=== PATIENT | female | born 1935 | race Caucasian/White ===

== ENCOUNTER 2017-10-19 22:22 | Inpatient (IN) | payer OTHER ==
[~2017-10-19] VITALS: Ht 154.9 cm; Wt 50.8 kg
[~2017-10-19 22:22] MED LIST: ADVAIR DISKUS 21 DSK IH; AMITRIPTYLINE100 MG PO; BACLOFEN10 MG PO; BUFFERIN LOW DO81 M1 PO; CARISOPRODOL350 MG PO; CIPRO500 MG PO; ECO81 PO; ELA50 PO; HYD25 PO; HYDROCHLOROTH12.5 MG PO; HYDROCODONE ACETAMIN; LAC PO; LEVAQUIN500 MG PO; LOP50 PO; METOPROLOL SUCC25 M1 PO; MICROZIDE12.5 MG PO; NEU300 PO; NOR10T; NOR10T PO; PREDNISONE5 MG PO; PRINIVIL10 MG PO; PRO AIR; PROAIR HFA8.5 GM; PROVENTIL0.09 MG/A1; SER25 PO; SEROQUEL50 M1 PO; SIMVASTATIN40 M1 PO; SOM350 PO; SPIRIVA18 MC1 IH; ZES10 PO; ZOC20 PO
[2017-10-19 22:41] VITALS: Ht 154.9 cm; Wt 50.8 kg
[2017-10-19 23:49] LABS: BASOPHIL % 0.4 % (0-2); PLATELET COUNT 348 x10^3mcL (130-400); RED CELL DISTRIBUTION WIDTH 13.6 % (11.5-14.5)
[2017-10-19 23:53] LABS: CALCIUM 8.6 mg/dL (8.5-10.1); CARBON DIOXIDE 27.7 mmol/L (21-32); CHLORIDE SERUM 103 mmol/L (98-107); CREATININE SERUM 0.9 mg/dL (0.6-1.0); GLUCOSE SERUM 114 mg/dL (74-106); POTASSIUM SERUM 3.5 mmol/L (3.5-5.1); SODIUM SERUM 139 mmol/L (136-145)
[2017-10-19 23:58] LABS: ALKALINE PHOSPHATASE 94 U/L (46-116); ALT/SGPT 15 U/L (14-59); AST/SGOT 13 U/L (15-37); BILIRUBIN TOTAL 0.6 mg/dL (0.20-1.00); TOTAL PROTEIN, SERUM 7.4 g/dL (6.4-8.2)
[2017-10-19 23:59] LABS: ALBUMIN 3.2 g/dL (3.4-5.0)
[2017-10-20] VITALS (8 sets, daily range): BP systolic 90–110; BP diastolic 51–64
[2017-10-20] MEDS ORDERED: BACLOFEN20 MG PO (00:16)
[2017-10-20] MEDS ORDERED: NOR5 PO (00:17)
[2017-10-20] MEDS ORDERED: LAXATIVE5 M1 PO (00:18)
[2017-10-20] MEDS ORDERED: MASON NATURAL1000 IU PO (00:19)
[2017-10-20] MEDS ORDERED: PREDNISONE20 MG PO ×2 (00:21)
[2017-10-20] MEDS ORDERED: CLARITIN10 MG PO (00:22)
[2017-10-20 02:51] LABS: MAGNESIUM 1.8 mg/dL (1.8-2.4); PHOSPHOROUS 2.3 mg/dL (2.5-4.9)
[2017-10-20 02:53] LABS: CHOLESTEROL/HDL RATIO 2.1
[2017-10-20 02:57] LABS: FREE T4 1.38 ng/dL (0.76-1.46); FREE THYROXINE INDEX 2.9 ug/dL (1.4-4.5); T3 TOTAL 0.6 ng/mL
[2017-10-20 06:40] LABS: CALCIUM 8.3 mg/dL (8.5-10.1); CHLORIDE SERUM 106 mmol/L (98-107); CREATININE SERUM 0.8 mg/dL (0.6-1.0); GLUCOSE SERUM 162 mg/dL (74-106); POTASSIUM SERUM 3.7 mmol/L (3.5-5.1); SODIUM SERUM 142 mmol/L (136-145)
[2017-10-20 07:01] LABS: PLATELET COUNT 310 x10^3mcL (130-400); RED CELL DISTRIBUTION WIDTH 13.5 % (11.5-14.5)
[2017-10-20 07:03] LABS: BASOPHIL % 0 % (0-2)
[2017-10-20 13:48] LABS: UA SPECIFIC GRAVITY 1.025 (1.005-1.035); microscopic required? YES; urine erythrocyte NEGATIVE (NEGATIVE)
[2017-10-21 05:25] VITALS: BP 114/62
[2017-10-21 05:59] LABS: PLATELET COUNT 331 x10^3mcL (130-400); RED CELL DISTRIBUTION WIDTH 13.7 % (11.5-14.5)
[2017-10-21 06:30] LABS: CALCIUM 8.3 mg/dL (8.5-10.1); CARBON DIOXIDE 26.7 mmol/L (21-32); CHLORIDE SERUM 108 mmol/L (98-107); CREATININE SERUM 0.9 mg/dL (0.6-1.0); GLUCOSE SERUM 157 mg/dL (74-106); PHOSPHOROUS 3.3 mg/dL (2.5-4.9); POTASSIUM SERUM 3.9 mmol/L (3.5-5.1); SODIUM SERUM 146 mmol/L (136-145)
[2017-10-21 08:19] LABS: BAND NEUTROPHIL 6 % (0-10); BASOPHIL 0 % (0-2); MONOCYTE 3 % (0-7); SEGMENTED NEUTROPHILS 88 % (37-75)
[2017-10-21 08:20] LABS: PLATELET MORPHOLOGY PLATELETS NORMAL
[2017-10-21 09:47] VITALS: BP 129/72
[2017-10-21 15:10] VITALS: BP 102/63
[2017-10-21 17:56] VITALS: BP 113/68
[2017-10-21 21:35] VITALS: BP 126/68
[2017-10-22 05:26] VITALS: BP 128/75
[2017-10-22 06:50] LABS: CALCIUM 8.9 mg/dL (8.5-10.1); CARBON DIOXIDE 28.6 mmol/L (21-32); CHLORIDE SERUM 110 mmol/L (98-107); CREATININE SERUM 0.8 mg/dL (0.6-1.0); GLUCOSE SERUM 102 mg/dL (74-106); MAGNESIUM 2.2 mg/dL (1.8-2.4); PHOSPHOROUS 2.9 mg/dL (2.5-4.9); POTASSIUM SERUM 3.8 mmol/L (3.5-5.1); SODIUM SERUM 146 mmol/L (136-145)
[2017-10-22 06:54] LABS: PLATELET COUNT 365 x10^3mcL (130-400); RED CELL DISTRIBUTION WIDTH 13.7 % (11.5-14.5)
[2017-10-22 09:30] VITALS: BP 135/76
[2017-10-22 10:22] LABS: BAND NEUTROPHIL 10 % (0-10); BASOPHIL 0 % (0-2); MONOCYTE 1 % (0-7); SEGMENTED NEUTROPHILS 85 % (37-75)
[2017-10-22 10:24] LABS: PLATELET MORPHOLOGY PLATELETS NORMAL; rbc morphology (normal/abnorm) ABNORMAL (NORMAL)
[2017-10-22] MEDS ORDERED: LEVAQUIN750 MG PO (12:29)
[2017-10-22] MEDS ORDERED: CLEOCIN HCL300 MG PO ×2 (12:31→16:21)
[2017-10-22] MEDS ORDERED: LAC PO ×2 (12:31→16:21)
[2017-10-22 13:34] VITALS: BP 122/71
[2017-10-22 14:31] VITALS: BP 122/71
== END 2017-10-22 16:44 | disposition home or self-care (01) | DRG 871 ==
LOC: ED 22:22 → DU 10-20 01:25
PROVIDERS: Emergency Medicine; Family Medicine; Student in an Organized Health Care Education/Training Program
DX: A41.9 Sepsis, unspecified organism (principal); J69.0 Pneumonitis due to inhalation of food and vomit; N17.0 Acute kidney failure with tubular necrosis; J96.21 Acute and chronic respiratory failure with hypoxia; J44.1 Chronic obstructive pulmonary disease with (acute) exacerbation; N39.0 Urinary tract infection, site not specified; E44.0 Moderate protein-calorie malnutrition; E87.0 Hyperosmolality and hypernatremia; Z68.1 Body mass index [BMI] 19.9 or less, adult; E83.39 Other disorders of phosphorus metabolism; R65.20 Severe sepsis without septic shock; I10 Essential (primary) hypertension; M54.2 Cervicalgia; M54.5 Low back pain; G89.29 Other chronic pain; R73.03 Prediabetes; D63.8 Anemia in other chronic diseases classified elsewhere; E78.5 Hyperlipidemia, unspecified; F32.9 Major depressive disorder, single episode, unspecified; F17.210 Nicotine dependence, cigarettes, uncomplicated; Z85.3 Personal history of malignant neoplasm of breast; Z90.12 Acquired absence of left breast and nipple; Z79.82 Long term (current) use of aspirin; Z79.891 Long term (current) use of opiate analgesic; Z79.52 Long term (current) use of systemic steroids; Z99.81 Dependence on supplemental oxygen
CPT/HCPCS: 36600; 82962; 83880; 84439; 87804; J1885; J1956; J2060; J2543; J2920; J2930; J7030; J7613; J7620; J7626; J7644; Q0092

== ENCOUNTER 2017-10-31 22:56 | Emergency (ER) | payer OTHER ==
[~2017-10-31] VITALS: Ht 154.9 cm; Wt 44.9 kg
[~2017-10-31 22:56] MED LIST changes: +BACLOFEN20 MG PO; +CLARITIN10 MG PO; +CLEOCIN HCL300 MG PO; +LAXATIVE5 M1 PO; +LEVAQUIN750 MG PO; +MASON NATURAL1000 IU PO; +NOR5 PO; +PREDNISONE20 MG PO
[2017-10-31 23:05] VITALS: Ht 154.9 cm; Wt 44.9 kg
[2017-11-01 00:08] LABS: BASOPHIL % 0.2 % (0-2); RED CELL DISTRIBUTION WIDTH 14.3 % (11.5-14.5)
[2017-11-01 00:16] LABS: PLATELET COUNT 486 x10^3mcL (130-400)
[2017-11-01 00:32] LABS: CALCIUM 9.3 mg/dL (8.5-10.1); CARBON DIOXIDE 32.4 mmol/L (21-32); CHLORIDE SERUM 104 mmol/L (98-107); GLUCOSE SERUM 129 mg/dL (74-106); POTASSIUM SERUM 4.1 mmol/L (3.5-5.1); SODIUM SERUM 145 mmol/L (136-145)
[2017-11-01 00:37] LABS: ALKALINE PHOSPHATASE 99 U/L (46-116); ALT/SGPT 19 U/L (14-59); AST/SGOT 23 U/L (15-37); BILIRUBIN TOTAL 0.24 mg/dL (0.20-1.00); TOTAL PROTEIN, SERUM 7.4 g/dL (6.4-8.2)
[2017-11-01 00:42] LABS: ALBUMIN 3.3 g/dL (3.4-5.0)
[2017-11-01 03:00] VITALS: BP 110/60
[2017-11-02] MEDS ORDERED: BACLOFEN20 MG PO (20:11)
[2017-11-02] MEDS ORDERED: CONSTULOSE10 GM/151 PO (20:11)
[2017-11-02] MEDS ORDERED: NOR10T PO (20:12)
[2017-11-02] MEDS ORDERED: BD LACTINEX1.4 MG PO (20:13)
[2017-11-02] MEDS ORDERED: SYMBICORT1 AE3 INH (20:13)
[2017-11-02] MEDS ORDERED: PROAIR RES117 MCG/Ac IH (20:14)
[2017-11-02] MEDS ORDERED: ATRNS6 IH (20:15)
== END 2017-11-01 03:00 | disposition home or self-care (01) ==
LOC: ED 22:56
PROVIDERS: Emergency Medicine
DX: J44.1 Chronic obstructive pulmonary disease with (acute) exacerbation (principal); K59.00 Constipation, unspecified; Z88.5 Allergy status to narcotic agent; Z71.6 Tobacco abuse counseling
CPT/HCPCS: 83880; 99406; J1885; J2405; J2930; J3010; J7613; J7644; Q0092

== ENCOUNTER 2017-11-02 17:59 | Inpatient (IN) | payer OTHER ==
[~2017-11-02] VITALS: Ht 154.9 cm; Wt 45.8 kg
[2017-11-02 18:51] LABS: BASOPHIL % 0.4 % (0-2); RED CELL DISTRIBUTION WIDTH 14.2 % (11.5-14.5)
[2017-11-02 18:52] LABS: PLATELET COUNT 478 x10^3mcL (130-400)
[2017-11-02 18:55] LABS: CALCIUM 8.8 mg/dL (8.5-10.1); CARBON DIOXIDE 30.4 mmol/L (21-32); CHLORIDE SERUM 101 mmol/L (98-107); GLUCOSE SERUM 99 mg/dL (74-106); POTASSIUM SERUM 4.4 mmol/L (3.5-5.1); SODIUM SERUM 141 mmol/L (136-145)
[2017-11-02 18:59] LABS: ALKALINE PHOSPHATASE 95 U/L (46-116); ALT/SGPT 20 U/L (14-59); AST/SGOT 22 U/L (15-37); BILIRUBIN TOTAL 0.2 mg/dL (0.20-1.00); TOTAL PROTEIN, SERUM 7.3 g/dL (6.4-8.2)
[2017-11-02 19:02] LABS: ALBUMIN 3.3 g/dL (3.4-5.0)
[2017-11-02] MEDS ORDERED: CONSTULOSE10 GM/151 PO (20:11)
[2017-11-02] MEDS ORDERED: BACLOFEN20 MG PO (20:11)
[2017-11-02] MEDS ORDERED: NOR10T PO (20:12)
[2017-11-02] MEDS ORDERED: BD LACTINEX1.4 MG PO (20:13)
[2017-11-02] MEDS ORDERED: SYMBICORT1 AE3 INH (20:13)
[2017-11-02] MEDS ORDERED: PROAIR RES117 MCG/Ac IH (20:14)
[2017-11-02] MEDS ORDERED: ATRNS6 IH (20:15)
[2017-11-02 22:20] VITALS: BP 120/75
[2017-11-02 22:24] VITALS: Ht 154.9 cm; Wt 45.8 kg
[2017-11-02 22:51] LABS: PHOSPHOROUS 3.8 mg/dL (2.5-4.9)
[2017-11-02 22:53] LABS: CHOLESTEROL/HDL RATIO 2.6
[2017-11-02 23:12] LABS: FREE T4 1.47 ng/dL (0.76-1.46); FREE THYROXINE INDEX 3.9 ug/dL (1.4-4.5); T4(THYROXINE) 9.8 ug/dL (4.7-13.3)
[2017-11-03 05:38] VITALS: BP 125/71
[2017-11-03 08:15] VITALS: BP 131/74
[2017-11-03 12:30] VITALS: BP 126/86
[2017-11-03 13:10] VITALS: BP 109/70
[2017-11-03 15:23] LABS: microscopic required? NO
[2017-11-03 15:28] LABS: UA SPECIFIC GRAVITY <=1.005 (1.005-1.035); urine erythrocyte NEGATIVE (NEGATIVE)
[2017-11-03 17:32] VITALS: BP 110/64
[2017-11-03 21:27] VITALS: BP 91/57
[2017-11-04 05:43] VITALS: BP 110/66
[2017-11-04 07:22] LABS: BASOPHIL % 0.2 % (0-2); PLATELET COUNT 419 x10^3mcL (130-400); RED CELL DISTRIBUTION WIDTH 14.1 % (11.5-14.5)
[2017-11-04 07:37] LABS: CALCIUM 8.9 mg/dL (8.5-10.1); CARBON DIOXIDE 27.1 mmol/L (21-32); CHLORIDE SERUM 105 mmol/L (98-107); CREATININE SERUM 0.8 mg/dL (0.6-1.0); GLUCOSE SERUM 131 mg/dL (74-106); MAGNESIUM 2.1 mg/dL (1.8-2.4); PHOSPHOROUS 4.9 mg/dL (2.5-4.9); POTASSIUM SERUM 4.4 mmol/L (3.5-5.1); SODIUM SERUM 142 mmol/L (136-145)
[2017-11-04 09:39] VITALS: BP 124/65
[2017-11-04 12:15] VITALS: BP 99/62
[2017-11-04 16:47] VITALS: BP 100/63
[2017-11-04 21:27] VITALS: BP 106/63
[2017-11-05 06:15] LABS: BASOPHIL % 0.1 % (0-2); RED CELL DISTRIBUTION WIDTH 13.9 % (11.5-14.5)
[2017-11-05 06:22] VITALS: BP 119/68
[2017-11-05 06:43] LABS: CALCIUM 8.9 mg/dL (8.5-10.1); CARBON DIOXIDE 27.2 mmol/L (21-32); CHLORIDE SERUM 105 mmol/L (98-107); CREATININE SERUM 0.8 mg/dL (0.6-1.0); GLUCOSE SERUM 117 mg/dL (74-106); MAGNESIUM 2.2 mg/dL (1.8-2.4); PHOSPHOROUS 4.5 mg/dL (2.5-4.9); POTASSIUM SERUM 4.5 mmol/L (3.5-5.1); SODIUM SERUM 141 mmol/L (136-145)
[2017-11-05 06:48] LABS: PLATELET COUNT 408 x10^3mcL (130-400)
[2017-11-05 10:04] VITALS: BP 124/65
[2017-11-05 12:19] VITALS: BP 114/65
[2017-11-05] MEDS ORDERED: LIO10 PO (14:27)
[2017-11-05] MEDS ORDERED: MEDDP PO (14:29)
[2017-11-05] MEDS ORDERED: MONTELUKAST SOD10 M1 PO (14:30)
[2017-11-05 15:00] VITALS: BP 114/65
[2017-11-05 16:29] VITALS: BP 113/67
== END 2017-11-05 17:49 | disposition home or self-care (01) | DRG 871 ==
LOC: ED 17:59 → DU 20:43
PROVIDERS: Emergency Medicine; Family Medicine
PROC: 5A09357 Assistance with Respiratory Ventilation, Less than 24 Consecutive Hours, Continuous Positive Airway Pressure (ICD-10-PCS; principal; 2017-11-02)
DX: A41.9 Sepsis, unspecified organism (principal); J69.0 Pneumonitis due to inhalation of food and vomit; J96.21 Acute and chronic respiratory failure with hypoxia; J96.22 Acute and chronic respiratory failure with hypercapnia; J44.1 Chronic obstructive pulmonary disease with (acute) exacerbation; E44.0 Moderate protein-calorie malnutrition; N39.0 Urinary tract infection, site not specified; Z68.1 Body mass index [BMI] 19.9 or less, adult; E78.5 Hyperlipidemia, unspecified; G89.29 Other chronic pain; M54.9 Dorsalgia, unspecified; F32.9 Major depressive disorder, single episode, unspecified; R73.03 Prediabetes; M94.0 Chondrocostal junction syndrome [Tietze]; I16.0 Hypertensive urgency; Z85.3 Personal history of malignant neoplasm of breast; Z98.1 Arthrodesis status; Z88.5 Allergy status to narcotic agent; Z80.3 Family history of malignant neoplasm of breast; Z87.891 Personal history of nicotine dependence; Z79.82 Long term (current) use of aspirin; Z79.899 Other long term (current) drug therapy; Z90.12 Acquired absence of left breast and nipple; Z99.81 Dependence on supplemental oxygen; Z71.6 Tobacco abuse counseling
CPT/HCPCS: 36600; 83880; 84439; 87804; A9500; C9113; J0696; J2543; J2785; J2920; J2930; J3475; J3490; J7030; J7613; J7620; J7644; Q0092

== ENCOUNTER 2018-05-26 18:33 | Inpatient (IN) | payer OTHER ==
[~2018-05-26] VITALS: Ht 154.9 cm; Wt 46.8 kg
[~2018-05-26 18:33] MED LIST changes: +ATRNS6 IH; +BD LACTINEX1.4 MG PO; +CONSTULOSE10 GM/151 PO; +LIO10 PO; +MEDDP PO; +MONTELUKAST SOD10 M1 PO; +PROAIR RES117 MCG/Ac IH; +SYMBICORT1 AE3 INH
[2018-05-26 18:48] VITALS: Ht 154.9 cm; Wt 46.8 kg
[2018-05-26 19:15] LABS: BASOPHIL % 1.1 % (0-2); PLATELET COUNT 373 x10^3mcL (130-400); RED CELL DISTRIBUTION WIDTH 13.1 % (11.5-14.5)
[2018-05-26 19:33] LABS: CALCIUM 9.1 mg/dL (8.5-10.1); CARBON DIOXIDE 26.9 mmol/L (21-32); CHLORIDE SERUM 107 mmol/L (98-107); CREATININE SERUM 0.8 mg/dL (0.6-1.0); GLUCOSE SERUM 123 mg/dL (74-106); POTASSIUM SERUM 3.7 mmol/L (3.5-5.1); SODIUM SERUM 143 mmol/L (136-145)
[2018-05-26 19:36] LABS: ALBUMIN 3.6 g/dL (3.4-5.0); ALKALINE PHOSPHATASE 108 U/L (46-116); ALT/SGPT 18 U/L (14-59); AST/SGOT 17 U/L (15-37); BILIRUBIN TOTAL 0.27 mg/dL (0.20-1.00); TOTAL PROTEIN, SERUM 7.9 g/dL (6.4-8.2)
[2018-05-26 19:38] LABS: CK-MB 3.6 ng/mL (0-3.6)
[2018-05-26] MEDS ORDERED: GABAPENTIN600 M1 PO (20:14)
[2018-05-26] MEDS ORDERED: NOR5 PO (20:14)
[2018-05-26] MEDS ORDERED: HYDROCODONE BIT1 T49 PO (20:15)
[2018-05-26] MEDS ORDERED: BACLOFEN20 MG PO (20:16)
[2018-05-26] MEDS ORDERED: COL-RITE100 M2 PO (20:16)
[2018-05-26] MEDS ORDERED: MOVANTIK25 MG PO (20:17)
[2018-05-26 20:48] VITALS: BP 140/78
[2018-05-26 22:10] VITALS: BP 140/78
[2018-05-27 04:56] VITALS: BP 124/72
[2018-05-27 06:12] LABS: BASOPHIL % 0.3 % (0-2); PLATELET COUNT 365 x10^3mcL (130-400); RED CELL DISTRIBUTION WIDTH 13.6 % (11.5-14.5)
[2018-05-27 06:23] LABS: CALCIUM 9.5 mg/dL (8.5-10.1); CARBON DIOXIDE 25.3 mmol/L (21-32); CHLORIDE SERUM 104 mmol/L (98-107); CREATININE SERUM 0.8 mg/dL (0.6-1.0); GLUCOSE SERUM 143 mg/dL (74-106); POTASSIUM SERUM 4.1 mmol/L (3.5-5.1); SODIUM SERUM 141 mmol/L (136-145)
[2018-05-27 09:24] VITALS: BP 141/88
[2018-05-27 11:17] VITALS: BP 141/88
== END 2018-05-27 11:59 | disposition home or self-care (01) | DRG 191 ==
LOC: ED 18:33 → DU 19:59
PROVIDERS: Emergency Medicine; Internal Medicine
DX: J44.1 Chronic obstructive pulmonary disease with (acute) exacerbation (principal); Z68.1 Body mass index [BMI] 19.9 or less, adult; G89.4 Chronic pain syndrome; M47.892 Other spondylosis, cervical region; Z99.81 Dependence on supplemental oxygen; Z87.891 Personal history of nicotine dependence; Z85.3 Personal history of malignant neoplasm of breast
CPT/HCPCS: 36600; 83880; J2920; J2930; J7613; J7620; J7644; Q0092